=== PATIENT | female | born 1950 | race Caucasian/White ===

== ENCOUNTER 2018-09-20 09:44 | Emergency (ER) | payer OTHER | END 2018-09-20 11:49 | disposition home or self-care (01) | LOC: FER 09:44 ==

== ENCOUNTER 2018-11-15 13:58 | Emergency (ER) | payer OTHER | END 2018-11-15 15:41 | disposition home or self-care (01) | LOC: FER 13:58 ==

== ENCOUNTER 2018-11-21 17:13 | Emergency (ER) | payer OTHER ==
--- NOTE | 2018-11-21 17:20 | PDOC ---
History of Present Illness <Amparo Schmitt - Last Filed: 11/21/18 18:49> - History of Present Illness Initial Comments: 11/22/18 16:55 68 yo F pm[facility] DM sent in from PCP for low sodium values (trending 125 and more recently 128). Pt recently discontinued from lisinopril/HCTZ recently, as PCP concerned it may have caused hyponatremia. Denies f/c, n/v, abd pain, cp/sob, headaches. Otherwise asymptomatic, currently being treated for UTI. PCP requesting XR for fecal impaction; family states patient has constipation followed by episodes of loose stool. <Reji Kyle - Last Filed: 11/22/18 16:56> - General Chief Complaint: Revisit, Lab Variance Stated Complaint: low sodium Time Seen by Provider: 11/21/18 17:19 Past History <Amparo Schmitt - Last Filed: 11/21/18 18:49> - Past Medical History COPD: No Diabetes: Yes GI Disorders: Yes (GERD) HTN: Yes - Suicide/Smoking/Psychosocial Hx Smoking History: Never smoked Hx Alcohol Use: No Drug/Substance Use Hx: No Substance Use Type: None <Reji Kyle - Last Filed: 11/22/18 16:56> - Past Medical History Allergies/Adverse Reactions: Allergies Allergy/AdvReac Type Severity Reaction Status Date / Time No Known Allergies Allergy Verified 11/21/18 17:38 Home Medications: Ambulatory Orders Sulfamethoxazole/Trimethoprim [Bactrim Ds -] 1 tab PO BID #14 tablet 11/15/18 Aspirin 81 mg PO ASDIR 11/21/18 Glipizide [Glipizide ER] 5 mg PO DAILY 11/21/18 Lisinopril/Hydrochlorothiazide [Lisinopril-Hctz 10-12.5 mg Tab] 1 each PO DAILY 11/21/18 Omeprazole 40 mg PO DAILY 11/21/18 Sitagliptin Phos/Metformin HCl [Janumet 50-1,000 mg Tablet] 1 each PO BID Review of Systems - Review of Systems Able to Perform ROS?: Yes Comments:: Denies f/c, n/v, abd pain, cp/sob, headaches Is the patient limited Faroese proficient: Yes <Reji Kyle - Last Filed: 11/22/18 16:56> *Physical Exam - Vital Signs Last Vital Signs Temp Pulse Resp BP Pulse Ox 97.8 F 97 H 18 129/49 L 97 11/21/18 17:16 11/21/18 17:16 11/21/18 17:16 11/21/18 17:16 11/21/18 17:16 <Amparo Schmitt - Last Filed: 11/21/18 18:49> - Physical Exam Comments: 11/22/18 16:55 GEN: Well appearing, NAD, comfortable. AAOx3 HEENT: NC/AT, EOMI, PERRLA, CN II-XII intact. CV: S1/S2, RRR, no m/r/g LUNG: CTAB, no wheezes, crackles, rales, rhonchi. GI: soft, ndnt, +BS, no guarding, no rebound. EXTREMITIES: 2+ distal pulses. No LE edema. No obvious deformities of all extremities. NEURO: Conversing appropriately, moving all extremities. <Reji Kyle - Last Filed: 11/22/18 16:56> ED Treatment Course - LABORATORY CBC & Chemistry Diagram: 11/21/18 17:45 11/21/18 17:45 - ADDITIONAL ORDERS Additional order review: Laboratory Results 11/21/18 17:45 Sodium 135 L Potassium 4.2 Chloride 98 Carbon Dioxide 26 Anion Gap 11 BUN 20.0 H Creatinine 0.9 Est GFR (CKD-EPI)AfAm 75.61 Est GFR (CKD-EPI)NonAf 65.24 Random Glucose 183 H Calcium 9.6 Total Bilirubin 0.6 AST 49 H ALT 65 H Alkaline Phosphatase 129 H Total Protein 7.4 Albumin 3.9 11/21/18 17:45 RBC 4.35 MCV 92.7 MCHC 33.4 RDW 13.0 MPV 8.2 Neutrophils % 54.8 Lymphocytes % 34.9 Monocytes % 6.8 Eosinophils % 2.4 Basophils % 1.1 <Amparo Schmitt - Last Filed: 11/21/18 18:49> - LABORATORY CBC & Chemistry Diagram: 11/21/18 17:45 11/21/18 17:45 <eRji Kyle - Last Filed: 11/22/18 16:56> Medical Decision Making - Medical Decision Making 11/21/18 17:42 68 yo F sent by PCP for low sodium workup and abd XR. Benign exam. Low concern for serious etiologies such as head trauma, head bleed. - CBC, CMP - XR ABD Na now 135 ABD XR shows stool but patient is moving stool Discharged home w/ PCP f/u and return precautions. Instructed to continue home meds and abx. Instructed to use miralax if pt having issues w/ BM. <Reji Kyle - Last Filed: 11/22/18 16:56> *DC/Admit/Observation/Transfer <Amparo Schmitt - Last Filed: 11/21/18 18:49> <Reji Kyle - Last Filed: 11/22/18 16:56> Diagnosis at time of Disposition: Constipation, Hyponatremia - Discharge Dispostion Disposition: HOME Condition at time of disposition: Improved - Referrals Referrals: Ollie Aquino MD [Staff Physician] - - Patient Instructions Printed Discharge Instructions: Constipation, DI for Hyponatremia, Nonalcoholic Fatty Liver Disease Additional Instructions: you should follow up with dr aquino. for continued constipation you can take miralax powder daily. continue taking your antiobiotics as prescribed. return for vomiting, fever, headache or any concerns. your sodium today is 135.
--- NOTE | 2018-11-21 17:31 | PDOC ---
Attending Attestation - Resident Resident Name: SarojReji - ED Attending Attestation I have performed the following: I have examined & evaluated the patient, The case was reviewed & discussed with the resident, I agree w/resident's findings & plan, Exceptions are as noted - HPI HPI: 11/21/18 17:28 68 yo F with h/o known hyponatremia, here from dr aquino office with prescription requesting labs and xray to r/o impaction. per pt no current nausea , no headache. no abd pain. states she was having constipation for 3 days until yesterday she five loose stools, no stooling today. no c/o abd pain currently. no nausea, no vomitig. was also started on antiobiotics for uti 11/15 , at that time was sxs with chills dysuria frequency. now is improved. urine cultures reviewed positive for ecolic sensitive to all. pt states her bp medication lisinopril/ hctz was discontinued as thought to be th cause of her hyponatremia. 11/21/18 17:43 - Physicial Exam PE: 11/21/18 17:30 awake alert lungs clear bilat heart rrr no mrg abd soft nt nd ext wwp. - Medical Decision Making 11/21/18 17:30 68 yo F here with request for repeat evaluation of hyponatremia. review recent labs obtained in ED 11/15 pt sodium was 128. also being treated for uti.plan repeat cbc cmp. will d/w dr aquino for clarification. 11/21/18 18:47 pt with stool right colon on xray. recommend continue stool softner as needed for constipation. sodium now 135. dc home fu dr aquino outpt.
[2018-11-21 17:36] VITALS: TEMP 97.8; BMI 33.4
[2018-11-21 18:08] LABS: BASO % 1.1 % (0-2.0); EOS % 2.4 % (0-4.5); HEMATOCRIT 40.3 % (32.4-45.2); HEMOGLOBIN 13.4 GM/dl (10.7-15.3); LYMPH % 34.9 % (8-40); MCH 30.9 pg (25.7-33.7); MCHC 33.4 g/dl (32.0-36.0); MEAN CELL VOLUME 92.7 fl (80-96); MEAN PLT VOLUME 8.2 fl (7.5-11.1); MONO % 6.8 % (3.8-10.2); NEUT % 54.8 % (42.8-82.8); PLATELET COUNT 354 K/MM3 (134-434); RBC 4.35 M/mm3 (3.60-5.2); WHITE BLOOD COUNT 7.5 K/mm3 (4.0-10.8)
[2018-11-21 18:27] LABS: ALBUMIN 3.9 g/dl (3.4-5.0); BILIRUBIN,TOTAL 0.6 mg/dl (0.2-1); CALCIUM 9.6 mg/dl (8.5-10); CREATININE 0.9 mg/dl (0.55-1.3); POTASSIUM 4.2 mmol/L (3.5-5.1); TOT PROT 7.4 g/dl (6.4-8.2)
[2018-11-21 19:07] VITALS: BP 126/52; PULSE 89
== END 2018-11-21 19:08 | disposition home or self-care (01) ==
LOC: FER 17:13
DX: K59.00 Constipation, unspecified (principal); E87.1 Hypo-osmolality and hyponatremia; I10 Essential (primary) hypertension; K21.9 Gastro-esophageal reflux disease without esophagitis
CPT/HCPCS: 36415; 74019-TC-FY; 80053; 85025; 99282-25